=== PATIENT | male | born 1995 | race Caucasian/White ===

== ENCOUNTER 2018-11-27 03:20 | Emergency (ER) | payer OTHER ==
--- NOTE | 2018-11-27 03:53 | C.PDOC ---
History Of Present Illness 23 year old male presents to the ER after accidentally ingesting half a bottle of chlorox. Patient states he woke up tonight, grabbed a bottle of water which he did not known had chlorox and drank half. As per aunt at bedside, the bottle contained only half bleach and the other half was water. Patient forced himself to vomit after realizing it was bleach and drank 4 cups of milk. Denies SOB, abdominal pain, diarrhea, or suicidal ideation. Time Seen by Provider: 11/27/18 03:35 Chief Complaint (Nursing): Ingestion, Accidental History Per: Patient, Family History/Exam Limitations: no limitations Onset/Duration Of Symptoms: Mins Current Symptoms Are (Timing): Still Present Recent travel outside of the [place]: No Past Medical History Reviewed: Historical Data, Nursing Documentation, Vital Signs Vital Signs: Last Vital Signs Temp 97.6 F 11/27/18 03:29 Pulse 80 11/27/18 03:29 Resp 18 11/27/18 03:29 BP 150/84 11/27/18 03:29 Pulse Ox 99 11/27/18 03:29 Family History: States: No Known Family Hx - Social History Hx Alcohol Use: Yes Hx Substance Use: No - Immunization History Hx Tetanus Toxoid Vaccination: No Hx Influenza Vaccination: No Hx Pneumococcal Vaccination: No Review Of Systems Constitutional: Negative for: Fever, Chills Respiratory: Negative for: Cough, Shortness of Breath Gastrointestinal: Negative for: Abdominal Pain, Diarrhea Psych: Negative for: Suicidal ideation Physical Exam - Physical Exam Appears: Non-toxic Skin: Normal Color, Warm, Dry Head: Atraumatic, Normacephalic Eye(s): bilateral: Normal Inspection, PERRL, EOMI Oral Mucosa: Moist, No Other (erythema, or signs of irritation) Throat: Normal, No Erythema, No Exudate Neck: Normal, Supple Chest: Symmetrical, No Tenderness Cardiovascular: Rhythm Regular Respiratory: Normal Breath Sounds, No Rales, No Rhonchi, No Wheezing Gastrointestinal/Abdominal: Soft, No Tenderness Neurological/Psych: Oriented x3, Normal Speech Gait: Steady ED Course And Treatment O2 Sat by Pulse Oximetry: 99 (Room air) Pulse Ox Interpretation: Normal Progress Note: Poison control was called by [facility] and advised that ingestion of bleach may cause vomiting otherwise there is nothing to do or be concerned at this time. Patient is resting comfortably in no acute distress, vitals are stable, patient reassured, will discharge home with instructions to follow up with PMD. Disposition Counseled Patient/Family Regarding: Diagnosis, Need For Followup - Disposition Referrals: [facility] [Outside] Disposition: HOME/ ROUTINE Disposition Time: 03:51 Condition: STABLE Additional Instructions: Please follow up with PMD Increase fluids Return to ER if abdominal pain, diarrhea, or worse Instructions: Chemical Ingestion (DC) Forms: [employer] (Latvian) - Clinical Impression Clinical Impression: Ingestion of bleach - PA / GARAGE MECH[employer]IC / Resident Statement MD/DO has reviewed & agrees with the documentation as recorded. - Scribe Statement The provider has reviewed the documentation as recorded by the Scribceleste Askew All medical record entries made by the Ikeribceleste were at my direction and personally dictated by me. I have reviewed the chart and agree that the record accurately reflects my personal performance of the history, physical exam, medical decision making, and the department course for this patient. I have also personally directed, reviewed, and agree with the discharge instructions and disposition.
[2018-11-27] MEDS ORDERED: Aluminum Hydroxide/Magnesium Hydroxide Susp (30 mL) PO STA (04:01)
[2018-11-27] MEDS ORDERED: Aluminum Hydroxide/Magnesium Hydroxide Susp (30 mL) ONE (04:01)
[2018-11-27 04:06] VITALS: BP 132/90; PULSE 84; RESP 16; TEMP 98.9
[2018-11-27 04:50] VITALS: O2SAT 99
== END 2018-11-27 04:06 | disposition home or self-care (01) ==
LOC: C.ER 03:20
DX: T54.91XA Toxic effect of unspecified corrosive substance, accidental (unintentional), initial encounter (principal); Y92.9 Unspecified place or not applicable